=== PATIENT | male | born 1965 | race Caucasian/White ===

== ENCOUNTER 2018-11-21 09:17 | Outpatient (CLI) | payer OTHER ==
[2014-12-25 20:40] VITALS: BP 127/79
[2018-11-21 10:14] LABS: BASOPHILS % 1.4 (0.0-1.5); EOSINOPHILS % 3.5 % (0.0-6.8); MEAN CORPUSCULAR HEMOGLOBIN 32.2 pg (28.0-34.0); MONOCYTES % 5.9 % (0.0-11.0); NEUTROPHILS # 2.6 # k/uL (1.4-7.7)
[2018-11-21 10:43] LABS: eGFR (Non-African) > 60
== END 2018-11-21 09:19 ==
LOC: LAB 09:17
PROVIDERS: ATTEND Internal Medicine
DX: Z12.5 Encounter for screening for malignant neoplasm of prostate (principal); E78.5 Hyperlipidemia, unspecified; I10 Essential (primary) hypertension
CPT/HCPCS: 36415; 80053; 80061; 84153; 85025